=== PATIENT | female | born 1950 | race Caucasian/White ===

== ENCOUNTER 2017-05-18 16:58 | Emergency (ER) | payer OTHER ==
[~2017-05-18] VITALS: Ht 162.6 cm; Wt 67.5 kg
[2017-05-18 16:59] VITALS: BP 164/90
[2017-05-18] MEDS ORDERED: PROPARACAINE OPHTH 0.5%, 15ML ONE (17:17)
[2017-05-18] MEDS ORDERED: FLUORESCEIN OPHTHALMIC 1 MG STRIP ONE (17:17)
== END 2017-05-18 20:13 | disposition home or self-care (01) ==
LOC: ED 18:00
DX: H43.812 Vitreous degeneration, left eye (principal); H33.22 Serous retinal detachment, left eye; H53.19 Other subjective visual disturbances; I10 Essential (primary) hypertension
CPT/HCPCS: 99284